=== PATIENT | male | born 1990 | race Caucasian/White ===

== ENCOUNTER 2021-04-03 15:46 | Emergency (ER) | payer OTHER ==
[2021-04-03 16:04] VITALS: BP 139/77; PULSE 95; TEMP 98.5; BMI 28.8
[2021-04-03] MEDS ORDERED: DIPHTH,PERTUSS(ACELL),TET 0.5 ML DISP.SYRIN IM ONE (16:24)
== END 2021-04-03 17:35 | disposition home or self-care (01) ==
LOC: JER 15:46 → JERFT 15:46
PROC: 3E0234Z Introduction of Serum, Toxoid and Vaccine into Muscle, Percutaneous Approach (ICD-10-PCS; principal; 2021-04-03)
DX: S01.81XA Laceration without foreign body of other part of head, initial encounter (principal)
CPT/HCPCS: 90715; 99284-25

== ENCOUNTER 2021-04-07 00:40 | Emergency (ER) | payer OTHER ==
[2021-04-07 01:13] VITALS: PULSE 64; TEMP 98.4
[2021-04-07 01:15] VITALS: BP 135/75; BMI 30.4
[2021-04-07] MEDS ORDERED: FLUORESCEIN NA 1 EA STRIP OD ONE (02:55)
[2021-04-07] MEDS ORDERED: FLUORESCEIN NA 1 EA STRIP ONE (03:07)
== END 2021-04-07 04:43 | disposition home or self-care (01) ==
LOC: JER 00:40
DX: H18.891 Other specified disorders of cornea, right eye (principal)
CPT/HCPCS: 99283-25

== ENCOUNTER 2021-04-08 13:32 | Emergency (ER) | payer OTHER ==
[2021-04-08 13:36] VITALS: BP 158/78; PULSE 69; TEMP 98.2; BMI 30.2
== END 2021-04-08 14:06 | disposition home or self-care (01) ==
LOC: JERFT 13:32
DX: Z48.02 Encounter for removal of sutures (principal)
CPT/HCPCS: 99281-25